=== PATIENT | male | born 1965 | race Two or more races ===

== ENCOUNTER 2019-08-16 19:47 | Emergency (ER) | payer SELFPAY ==
[2019-08-16 19:58] VITALS: BP 150/83
--- NOTE | 2019-08-16 20:56 | ER Document Report ---
ED Medical Screen (RME) - General Chief Complaint: Fall Stated Complaint: LEFT KNEE/LEG PAIN Time Seen by Provider: 08/16/19 20:27 Primary Care Provider: [facility] OF [facility] [Provider Group] - Follow up as needed [facility] [Provider Group] - Follow up as needed ALVIN VALDIVIA JR, DO [ACTIVE PROVISIONAL STAFF] - Follow up as needed Notes: Patient is a 54-year-old male with a history of diabetes and hypertension who presents the emergency department with a chief complaint of left knee pain and right low back pain. Patient slipped around 1:00 this afternoon on a wet floor at [facility] and fell on his knee and on his back. Patient is able to walk. Patient states that he took Tylenol about an hour prior to arrival. Patient primarily speaks [place]. I offered an court interpreter and he said that he can speak Czech and understand Czech. Patient refused an court interpreter. - Related Data Allergies/Adverse Reactions: aspirin Allergy (Unknown, Verified 08/16/19 20:26) Past Medical History - General Information source: Patient - Social History Chew tobacco use (# tins/day): No Frequency of alcohol use: Occasional Drug Abuse: None Review of Systems - Review of Systems Notes: REVIEW OF SYSTEMS: CONSTITUTIONAL : Denies recent illness. Denies recent unintentional weight loss. Denies fever, chills, or sweats. EENT: Denies eye, ear, throat, or mouth pain, discharge, or symptoms. Denies nasal or sinus congestion. CARDIOVASCULAR: Denies chest pain. RESPIRATORY: Denies shortness of breath, cough, congestion, difficulty breathing, or wheezing. GASTROINTESTINAL: Denies nausea, vomiting, and diarrhea. Denies abdominal pain. Denies constipation. GENITOURINARY: Denies difficulty urinating, burning, blood in urine, urgency or frequency. MUSCULOSKELETAL: See HPI. SKIN: Denies rash, itchiness, or lesions HEMATOLOGIC : Denies easy bruising or bleeding. LYMPHATIC: Denies swollen, painful, enlarged glands. NEUROLOGICAL: Denies no numbness or tingling denies weakness. Denies headache. Denies altered mental status. Denies alteration in speech. PSYCHIATRIC: Denies stress, anxiety, alteration in sleep patterns, or depression. All other systems reviewed and negative. Physical Exam - Vital signs Vitals: Temp Pulse Resp BP Pulse Ox 98.6 F 72 16 150/83 H 97 08/16/19 19:56 08/16/19 19:56 08/16/19 19:56 08/16/19 19:56 08/16/19 19:56 - Notes Notes: PHYSICAL EXAMINATION: GENERAL: Appears well, healthy, well-nourished, no acute distress. HEAD: Normocephalic, atraumatic. EYES: PERRL, conjunctiva normal, all extraocular movements intact, sclera nonicteric ENT: Moist mucous membranes. NECK: Supple, no noticeable swelling, redness, rash. Normal range of motion. LUNGS: Equal breath sounds bilaterally and clear to auscultation. No wheezes rales or rhonchi. CARDIOVASCULAR: S1-S2, regular rate, regular rhythm. Radial pulses 2+, normal. ABDOMEN: Normoactive bowel sounds. Soft, nontender, no guarding, no rebound tenderness, and no masses palpated. EXTREMITIES: Tenderness noted to left anterior knee. NEUROLOGICAL: Moves all extremities upon command. PSYCH: Normal mood, normal affect. SKIN: Warm, dry. No rash, lesions, ulcerations noted. Normal skin turgor. BACK: No ecchymosis noted. Course - Re-evaluation Re-evalutation: 08/16/19 21:32 Patient's x-ray shows degenerative changes in his knee. He also has soft tissue swelling near his patella. No fracture noted on x-ray. Will place the patient in knee immobilizer, David wrap, and give him crutches. - Vital Signs Vital signs: Temp Pulse Resp BP Pulse Ox 98.6 F 72 16 150/83 H 97 08/16/19 20:19 08/16/19 19:56 08/16/19 19:56 08/16/19 19:56 08/16/19 19:56 Procedures - Immobilization Left Knee Pre-Proc Neuro Vasc Exam: Normal Immobilizer type: David wrap, Crutches, Knee immobilizer Performed by: SERGEY Post-Proc Neuro Vasc Exam: Normal, Unchanged from pre-exam Alignment checked and good: Yes Doctor's Discharge - Discharge Clinical Impression: Left knee pain Qualifiers: Chronicity: acute Qualified Code(s): M25.562 - Pain in left knee Right-sided back pain Qualifiers: Back pain location: low back pain Chronicity: acute Sciatica presence: without sciatica Qualified Code(s): M54.5 - Low back pain Condition: Stable Disposition: HOME, SELF-CARE Additional Instructions: You were seen today in the emergency department for left knee pain and right back pain after a fall. Your x-ray shows that you have swelling around your knee. There is no fracture. Rest, apply ice, and elevate your leg. Use the crutches, David wrap, and knee immobilizer to help you get around. See if you can file Workmen's compensation. Follow-up with 1 of the clinics below if you continue to have pain. Follow-up with orthopedics if needed. Take Tylenol 1000 mg every 6 hours as needed for the pain. Usted fue visto hoy en el departamento de emergencias por dolor en la rodilla izquierda y dolor de espalda derecho despus de gregoria cada. La radiografa muestra que tienes hinchazn alrededor de la rodilla. No hay fractura. Descansa, aplica hielo y eleva la pierna. Usa las muletas, la envoltura de as y el inmovilizador de rodilla para ayudarte a moverte. A marie si puedes presentar la compensacin de los trabajadores. Realice un seguimiento con 1 de las clnicas siguientes si contina teniendo dolor. Seguimiento con ortopedia si es necesario. [place] Tylenol 1000 mg cada 6 horas segn sea necesario para el dolor. Forms: Return to Work Referrals: [facility] [Provider Group] - Follow up as needed [facility] [Provider Group] - Follow up as needed ALVIN VALDIVIA JR, DO [ACTIVE PROVISIONAL STAFF] - Follow up as needed
--- NOTE | 2019-08-16 21:13 | RADIOLOGY REPORT (SQ) ---
EXAM DESCRIPTION: X-ray, four views of the left knee. CLINICAL HISTORY: 54 years Male, fall; left knee pain COMPARISON: None. FINDINGS: Traction osteophyte formation on the patella is seen at the insertion of the quadriceps tendon. There is prepatellar soft tissue swelling. No effusion. No fracture. No erosions or periostitis. Mild medial joint space compartment narrowing is seen. IMPRESSION: Subtle degenerative change. No fracture. Prepatellar soft tissue swelling is identified.
--- NOTE | 2019-08-16 21:32 | ER Document Report ---
HPI - HPI Time Seen by Provider: 08/16/19 20:27 Pain Level: 4 Context: Patient is a 54-year-old male with a history of diabetes and hypertension who presents the emergency department with a chief complaint of left knee pain and right low back pain. Patient slipped around 1:00 this morning on a wet floor and fell on his knee and on his back. Patient is able to walk. Patient states that he took Tylenol about an hour prior to arrival. - CONSTITUTIONAL Constitutional: DENIES: Fever, Chills - EENT EENT: DENIES: Sore Throat, Ear Pain, Eye problems - NEURO Neurology: DENIES: Headache, Weakness, Vision blurred, Dizzinesss / Vertigo - CARDIOVASCULAR Cardiovascular: DENIES: Chest pain - RESPIRATORY Respiratory: DENIES: Trouble Breathing, Coughing - GASTROINTESTINAL Gastrointestinal: DENIES: Abdominal Pain, Black / Bloody Stools - URINARY Urinary: DENIES: Dysuria, Urgency, Frequency - REPRODUCTIVE Reproductive: DENIES: : - MUSCULOSKELETAL Musculoskeletal: REPORTS: Extremity pain - left knee Past Medical History - Social History Smoking Status: Former Smoker Chew tobacco use (# tins/day): No Frequency of alcohol use: Occasional Drug Abuse: None Patient has homicidal ideation: No Course - Re-evaluation Re-evalutation: 08/16/19 21:32 Patient's x-ray shows degenerative changes in his knee. He also has soft tissue swelling near his patella. No fracture noted on x-ray. Will place the patient in knee immobilizer, David wrap, and give him crutches. - Vital Signs Vital signs: Temp Pulse Resp BP Pulse Ox 98.6 F 72 16 150/83 H 97 08/16/19 20:19 08/16/19 19:56 08/16/19 19:56 08/16/19 19:56 08/16/19 19:56 Discharge - Discharge Clinical Impression: Left knee pain Qualifiers: Chronicity: acute Qualified Code(s): M25.562 - Pain in left knee Right-sided back pain Qualifiers: Back pain location: low back pain Chronicity: acute Sciatica presence: without sciatica Qualified Code(s): M54.5 - Low back pain Condition: Stable Disposition: HOME, SELF-CARE Additional Instructions: You were seen today in the emergency department for left knee pain and right back pain after a fall. Your x-ray shows that you have swelling around your knee. There is no fracture. Rest, apply ice, and elevate your leg. Use the crutches, David wrap, and knee immobilizer to help you get around. See if you can file Workmen's compensation. Follow-up with 1 of the clinics below if you continue to have pain. Follow-up with orthopedics if needed. Take Tylenol 1000 mg every 6 hours as needed for the pain. Usted fue visto hoy en el departamento de emergencias por dolor en la rodilla izquierda y dolor de espalda derecho despus de gregoria cada. La radiografa muestra que tienes hinchazn alrededor de la rodilla. No hay fractura. Descansa, aplica hielo y eleva la pierna. Usa las muletas, la envoltura de as y el inmovilizador de rodilla para ayudarte a moverte. A marie si puedes presentar la compensacin de los trabajadores. Realice un seguimiento con 1 de las clnicas siguientes si contina teniendo dolor. Seguimiento con ortopedia si es necesario. [place] Tylenol 1000 mg cada 6 horas segn sea necesario para el dolor. Forms: Return to Work Referrals: [facility] [Provider Group] - Follow up as needed [facility] [Provider Group] - Follow up as needed ALVIN VALDIVIA JR, [ACTIVE PROVISIONAL STAFF] - Follow up as needed
== END 2019-08-16 21:53 | disposition home or self-care (01) ==
LOC: ER 19:47
DX: M25.562 Pain in left knee (principal); M54.5 Low back pain; W01.0XXA Fall on same level from slipping, tripping and stumbling without subsequent striking against object, initial encounter; Y92.512 Supermarket, store or market as the place of occurrence of the external cause; Z88.6 Allergy status to analgesic agent
CPT/HCPCS: 99283